=== PATIENT | male | born 1975 | race Caucasian/White ===

== ENCOUNTER 2021-06-02 18:22 | Inpatient (IN) | payer SELFPAY ==
--- NOTE | 2021-06-02 18:25 | Emergency Department Report ---
ED Chest Pain HPI - General Chief Complaint: Chest Pain Stated Complaint: STEMI Time Seen by Provider: 06/02/21 18:23 - History of Present Illness Initial Comments: Patient presents by EMS with chest pain. He has had chest pain for the last 1 to 2 hours. It is described as a substernal pain that radiates to the left side with heaviness. He has been nauseous. He has been vomiting. He has been diaphoretic. He is also been short of breath. Patient has known coronary disease. He states that he underwent cardiac catheterization about 1 year ago at [place]. He was told that he had some "blockages." No stent was placed. He was told that they were going to wait and see if medical management would alleviate his condition. He does also admit that he has not been compliant with his current medications. He admits to smoking marijuana but denies cigarette smoke. Pain is improved since EMS transported. They have administered morphine, nitro, and aspirin. They also administered Zofran. His pain went from a 10 out of 10 to a 1 out of 10 currently. There is no recent history of trauma. He has had no cough or congestion. He has had no fevers or chills. There is no known coronavirus exposure. Heart Score - HEART Score History: Highly suspicious EKG: Significant ST-depression Age: 45-65 Risk factors: > 3 risk factors or hx of atherosclerotic disease Troponin: < normal limit HEART Score: 7 - EKG Read Time Time EKG Completed: 18:00 EKG Read Time: 18:00 ED Review of Systems ROS: Stated complaint: STEMI Other details as noted in HPI Comment: All other systems reviewed and negative Constitutional: denies: fever Eyes: denies: vision change ENT: denies: throat pain Respiratory: denies: cough Cardiovascular: as per HPI Endocrine: denies: increased thirst, increased urine Gastrointestinal: denies: abdominal pain Genitourinary: denies: dysuria Musculoskeletal: denies: back pain Skin: denies: rash Neurological: denies: headache Hematological/Lymphatic: denies: easy bruising ED Past Medical Hx - Past Medical History Hx Hypertension: Yes - Family History Family history: hypertension ED Physical Exam - General Limitations: No Limitations General appearance: alert, anxious - Head Head exam: Present: atraumatic, normocephalic - Eye Eye exam: Present: normal appearance, PERRL, EOMI. Absent: conjunctival injection - ENT ENT exam: Present: normal exam, normal orophraynx - Neck Neck exam: Present: normal inspection. Absent: meningismus - Respiratory Respiratory exam: Present: normal lung sounds bilaterally. Absent: respiratory distress - Cardiovascular Cardiovascular Exam: Present: regular rate, normal rhythm - GI/Abdominal GI/Abdominal exam: Present: soft (Obese). Absent: tenderness - Back Exam Back exam: Absent: CVA tenderness (R), CVA tenderness (L) - Neurological Exam Neurological exam: Present: alert, oriented X3. Absent: motor sensory deficit - Psychiatric Psychiatric exam: Present: normal affect, normal mood - Skin Skin exam: Present: warm, dry ED Course - Reevaluation(s) Reevaluation #1: 06/02/21 18:28 Patient was seen upon arrival by EMS. Cardiology had already been faxed to the EKG. That was done at 1755 hrs. [facility] had been activated. Dr. Fitzpatrick was notified for the hospitalist. ED Medical Decision Making - EKG Data -: EKG Interpreted by Me EKG shows normal: sinus rhythm, axis, intervals Rate: normal - EKG Data When compared to previous EKG there are: changes noted Interpretation: acute IL - Medical Decision Making Patient presented with STEMI based on EKG. He does have risk factors for ACS. He was medically managed. He was taken emergently to the [facility] due to the abnormal EKG. Cardiology and the hospitalist service has been notified. Patient did not have a pulse deficit with suggest aortic dissection. Symptoms are nonpleuritic. No adventitious breath sounds. Believe that pneumonia is less likely. I believe that pneumothorax is less likely. He does not have coronavirus symptoms. Critical Care Time: Yes (Critical care time of 30 minutes exclusive of all procedures.) Critical care attestation.: If time is entered above; I have spent that time in minutes in the direct care of this critically ill patient, excluding procedure time. ED Disposition Clinical Impression: STEMI (ST elevation myocardial infarction) Disposition: ADMITTED INPATIENT Is pt being admited?: Yes Does the pt Need Aspirin: Yes Condition: Serious
--- NOTE | 2021-06-02 18:26 | History and Physical Report ---
History of Present Illness Chief complaint: My chest hurts History of present illness: 45 YO Male with Obesity, HTN, CAD, Nicotine Dependence presents to ED for evaluation. Patient reports "my chest hurts". Patient states that he experienced sudden onset chest pain over the past 2 hours. Patient states that pain is 7/10, constant, substernal, crushing in nature, associated with shortness of breath, worsened with exertion, relieved with rest, relieved with nitro. Patient acknowledges diaphoresis. EMS was notified and upon arrival the patient was found to be in distress and subsequently transported to [facility] for further care and evaluation of the aforementioned symptoms. The patient was seen and evaluated in the emergency department. All lab and imaging studies reviewed. Patient underwent EKG and found to have clinical symptoms consistent with unstable angina, ST elevation [place], as well as clinical symptoms consistent with diastolic congestive heart failure.. Cardiology team consulted and the patient was taken urgently to [facility]. Patient denies fever, chills, palpitation, productive cough, skin rash, recent ill contact, or known exposure to COVID-19. No prior admission for review. No medication listed at time of admission for reconciliation. Past History Past Medical History: CAD, hypertension Past Surgical History: No surgical history, Other (Reviewed) Social history: single, smoking Family history: diabetes, hypertension Medications and Allergies Allergies Allergy/AdvReac Type Severity Reaction Status Date / Time No Known Allergies Allergy Unverified 06/02/21 18:37 Review of Systems Constitutional: no weight loss, no weight gain, no fever, no chills Ears, nose, mouth and throat: no ear pain, no tinnitis, no nose pain, no nasal discharge Cardiovascular: chest pain, shortness of breath, decreased exercise tolerance Respiratory: no cough, no cough with sputum, no hemoptysis, no shortness of breath Gastrointestinal: no abdominal pain, no vomiting, no constipation, no change in bowel habits Genitourinary Male: no hematuria, no flank pain, no urinary frequency, no urinary hesitancy, no nocturia Rectal: no pain, no bleeding Musculoskeletal: no neck pain, no shooting arm pain, no low back pain, no shooting leg pain, no redness of joints Integumentary: no rash, no redness, no jaundice, no boils Neurological: no head injury, no paralysis, no parathesias, no tingling, no tremors Psychiatric: no anxiety, no sleep disturbances, no hypersomnia, no change in appetite Endocrine: no cold intolerance, no excessive thirst, no polydipsia, no polyuria, no excessive sweating Hematologic/Lymphatic: no easy bruising Allergic/Immunologic: no urticaria, no allergic rhinitis Exam - Constitutional General appearance: Present: mild distress, obese - EENT Eyes: Present: PERRL ENT: hearing intact, clear oral mucosa - Neck Neck: Present: supple, normal ROM - Respiratory Respiratory effort: normal Respiratory: bilateral: CTA - Cardiovascular Heart Sounds: Present: S1 & S2. Absent: rub, click - Extremities Extremities: pulses symmetrical, No edema Peripheral Pulses: within normal limits - Abdominal General gastrointestinal: Present: soft, non-tender, non-distended, normal bowel sounds Male genitourinary: Present: normal - Integumentary Integumentary: Present: clear, warm, dry - Musculoskeletal Musculoskeletal: gait normal, strength equal bilaterally - Psychiatric Psychiatric: appropriate mood/affect, intact judgment & insight - Neurologic Neurologic: CNII-XII intact, moves all extremities Results - Labs CBC & Chem 7: 06/02/21 19:35 06/02/21 19:35 Assessment and Plan - Patient Problems (1) STEMI (ST elevation myocardial infarction) Current Visit: No Status: Acute Plan to address problem: Cardiology team consulted. Patient taken urgently to [facility], patient admitted to ICU for further care. The high probability of a clinically significant, sudden or life threatening deterioration of the [cardiac, pulmonary] system(s) required my full and direct attention, intervention and personal management. The aggregate critical care time was [65] minutes. This time is in addition to time spent performing reported procedures but includes the following: [x] Data Review and interpretation [x] Patient assessment and monitoring of vital signs [x] Documentation [x] Medication orders and management (2) Diastolic CHF Current Visit: Yes Status: Acute Qualifiers: Heart failure chronicity: acute Qualified Code(s): I50.31 - Acute diastolic (congestive) heart failure Plan to address problem: Strict I/O, monitor urine output every shift, blood pressure control, cardiology team consulted. (3) Nicotine dependence Current Visit: Yes Status: Acute Qualifiers: Nicotine product type: cigarettes Substance use status: in withdrawal Qualified Code(s): F17.213 - Nicotine dependence, cigarettes, with withdrawal Plan to address problem: Smoking cessation counseling, supportive care. (4) Obesity hypoventilation syndrome Current Visit: Yes Status: Acute Plan to address problem: Balanced diet, increase physical activity at discharge, outpatient pulmonary follow-up for sleep study. (5) DVT prophylaxis Current Visit: Yes Status: Acute Plan to address problem: SCD to bilateral lower extremities while in bed
[2021-06-02] MEDS ORDERED: MIDAZOLAM 2 MG/2 ML INJ ONE (18:29)
[2021-06-02] MEDS ORDERED: HEPARIN/NS 5000 UNIT/500ML 1,000 ML IR ONE (18:29)
[2021-06-02] MEDS ORDERED: HEPARIN 10,000 UNITS/10 ML VIAL ONE (18:29)
[2021-06-02] MEDS ORDERED: NITROGLYCERIN SYRINGE 0 ML ONE (18:30)
[2021-06-02] MEDS ORDERED: VERAPAMIL 5 MG/2 ML INJ ONE (18:30)
[2021-06-02] MEDS ORDERED: SODIUM CHLORIDE 0.9% 1000 ML 1,000 ML ONE (18:30)
[2021-06-02] MEDS ORDERED: fentaNYL 100 MCG/2 ML INJ ONE (18:30)
[2021-06-02] MEDS ORDERED: HYDROmorphone 1 MG/1 ML INJ IV PRN (18:40)
[2021-06-02] MEDS ORDERED: ACETAMINOPHEN 325 MG TAB PO PRN ×2 (18:40→20:53)
[2021-06-02] MEDS ORDERED: oxyCODONE /ACETAMINOPHEN 5-325MG TAB PO PRN (18:40)
[2021-06-02] MEDS: LIDOCAINE (2%) 20 MG/1 ML VIAL 20 ML MDV INFILTRATI ONE ×2 (18:43→19:10)
[2021-06-02] MEDS ORDERED: ATROPINE 0.1% (1 MG/10 ML) CARDIAC SYRINGE ONE (18:48)
[2021-06-02] MEDS: HEPARIN 10,000 UNITS/10 ML VIAL ONE ×3 (18:50→20:25)
[2021-06-02] MEDS ORDERED: HEPARIN/NS 5000 UNIT/500ML 500 ML IR ONE (18:53)
[2021-06-02] MEDS ORDERED: NITROGLYCERIN DRIP 50 MG/250 ML BOTTLE ONE (19:40)
[2021-06-02 19:50] LABS: Hemoglobin 14.8 gm/dl (11.8-15.2); Mean Corpuscular HGB Conc 34 % (32-34); Mean Corpuscular Volume 90 fl (84-94); Platelet Count 250 K/mm3 (140-440); Red Blood Count 4.79 M/mm3 (3.65-5.03); Red Cell Distribution Width 14.3 % (13.2-15.2)
[2021-06-02 20:03] LABS: Calcium 8.4 mg/dL (8.4-10.2)
[2021-06-02] MEDS ORDERED: TICAGRELOR 90 MG TAB ONE (20:25)
[2021-06-02] MEDS ORDERED: ALUM-MAG HYDROXIDE-SIMETHICONE 200-200-20MG/5ML ORAL LIQD 30 ML ONE (20:26)
[2021-06-02 20:32] LABS: INR 1.13 (0.87-1.13)
[2021-06-02] MEDS ORDERED: HEPARIN/ 0.45% NACL DRIP 25,000 UNIT/500 ML BAG ONE (20:33)
[2021-06-02] MEDS ORDERED: SENNOSIDES 8.6 MG TAB PO PRN (20:53)
[2021-06-02] MEDS ORDERED: ZOLPIDEM 5 MG TAB PO PRN (20:53)
[2021-06-02] MEDS ORDERED: ONDANSETRON 4 MG/2 ML INJ IV PRN (20:53)
[2021-06-02] MEDS ORDERED: SODIUM CHLORIDE 0.9% 100 ML IVPB IV SCH (21:00)
[2021-06-02] MEDS ORDERED: HEPARIN/ 0.45% NACL DRIP 25,000 UNIT/500 ML BAG IV SCH (21:00)
[2021-06-02 21:18] LABS: Partial Thromboplastin Time > 240.0 Sec. (24.2-36.6)
[2021-06-02] MEDS ORDERED: SODIUM CHLORIDE 0.9% 1000 ML 1,000 ML IV SCH (22:15)
[2021-06-02] MEDS: TICAGRELOR 90 MG TAB PO SCH (22:53)
[2021-06-02] MEDS: METOPROLOL TARTRATE 50 MG TAB PO SCH (23:01)
--- NOTE | 2021-06-03 01:30 | Cardiac Catherization Report ---
DATE OF SERVICE: 06/02/2021 CARDIAC CATHETERIZATION AND CORONARY INTERVENTION REPORT INDICATIONS: A 45-year-old -Japanese gentleman with history of hypertension and obesity, known coronary artery disease, continued on medical therapy. He did not have any followup in the last couple of years, he apparently had catheterization done at [facility] and he was advised medical therapy according to the patient. Since that time, he did not have any cardiac followup. Two hours prior to admission, he started having anterior chest pain, sweating and short of breath, hence paramedics were called and EKG showed ST elevations in the inferior leads and was brought to the Emergency Room and a STEMI protocol was followed and brought to the catheterization laboratory on an emergency basis with continued severe chest pain and blood pressure being elevated. The patient was explained the diagnosis and emergency catheterization was recommended and he agreed for the same. DESCRIPTION OF PROCEDURE: The patient was brought to the catheterization laboratory. Received morphine sulfate in the Emergency Room and he still continues to have chest pain and evaluated for moderate sedation and received IV Versed and fentanyl. Subsequently, initially both the radial access site and femoral artery access sites were prepared and local anesthesia was given in the right wrist area and a right radial artery access was obtained without difficulty. The patient received 5 mg of intra-arterial verapamil and 3000 units of intravenous heparin. Subsequently, a JR4 6-Macedonian guiding catheter was advanced and engaged the right coronary artery, which showed occlusion of the proximal RCA. However, the guiding support was poor. Guidewire was advanced into the distal RCA and balloon angioplasty was attempted using the radial artery. The balloon was dilated at one time, however, subsequently because of poor guide support and difficult manipulation to keep the guiding catheter engaged in spite of trying different guiding catheters including JR4 and AR1 and modified right catheter. Because of difficulty with the support, access was changed to right femoral area. Local anesthesia was given in the right femoral area. Under fluoroscopic guidance, right femoral artery access was obtained without difficulty with a 5-Macedonian micropuncture needle. A 6-Macedonian sheath was introduced. A 6-Macedonian JR4 was used to engage the right coronary artery with decent guide support. A 0.014-inch Torreon XT guidewire was advanced into distal RCA. Subsequently, lesion was dilated with a 2.75 x 15 mm few times and there is evidence of QUINTIN-3 flow into the distal RCA. As noted above, RCA is 100% occluded proximally initially with a QUINTIN-0 flow. However, there is large amount of thrombus noted. Attempt was made to advance a 6-Macedonian [place] catheter; however, could not advance the thrombectomy catheter. Subsequently, lesion was dilated few times with 3.0 x 20 mm Euphora balloon with resolution of the thrombus and lesion was reduced to 40-50%. However, distal RCA showed diffuse ectasia along with a few focal 80-90% lesions. QUINTIN-3 flow was still noted. A 4.0 x 26 mm Resolute Bhupinder stent was inserted in proximal RCA with inflation up to 14 atmospheres with very good result. Proximal lesion was reduced from initially 100% to 0%. After insertion of the stent, distal lesions were dilated with a 2.5 x 20 mm balloon and 2.75 x 15 mm balloon. However, it is very difficult to advance the balloons to distal area because of not very good guide support. It is to be noted mid and distal RCA is diffusely diseased. Considering the diffuse nature of the vessel and QUINTIN-3 flow and resolution of the patient's chest pain, it was felt that the patient can be continued on medical therapy. No complications of perforation or dissection were noted. No distal embolization noted. However, the patient developed a significant reperfusion arrhythmia and hypotension after opening the RCA, which improved with time. After obtaining the angiograms of the right coronary artery and intervening the right coronary lesion when satisfactory result was obtained, left coronary angiograms were obtained using JL 4.0 diagnostic catheter. This showed left main to be without significant disease; however, LAD showed a long 70% lesion proximally with a severe 80-90% very distal lesion. Diagonal branch without significant disease. However, the circumflex artery showed 60-70% proximal lesion and also occluded obtuse marginal branch noted proximally. Circumflex artery also showed severe long distal lesion approaching 90%, which is supplying the posterior obtuse marginal branch. Ramus branch without significant disease. Collaterals none. Left ventriculogram was performed using a multipurpose catheter in LOONEY and MARISSA projection. This showed normal sized left ventricle with normal contractility with no significant wall motion abnormalities and end-diastolic pressure was 22 mmHg. Significant mitral regurgitation could not be evaluated because of limited amount of dye. It is to be noted the patient is significantly obese, and very uncomfortable during the procedure. However, at the end of the procedure, he is completely pain free in the recovery area, is very comfortable. The patient was started on IV nitroglycerin during the procedure for control of blood pressure. The patient had transient bradycardia and hypotension, probably secondary to reperfusion injury; however, it resolved without any intervention. In the recovery area, the patient is comfortable, no hematoma in the right groin. It is to be noted right radial access was managed with radial band with good closure. Right femoral artery access was managed with application of Angio-Seal closure device after obtaining angiograms and showing satisfactory angiograms per closure device. Post closure, no hematoma noted in the right groin. Post-procedure ACT was found to be around 240 milliseconds, received extra dose of 3000 units of heparin. The patient received 180 mg of Brilinta after the procedure in the catheterization laboratory. The patient's moderate sedation started at 1842 hours and ended at 2013 hours. 1. Left ventriculogram done in LOONEY projection showed normal sized left ventricle with normal contractility. End-diastolic pressure is 22 mmHg. Mitral regurgitation was not evaluated. 2. Left coronary system shows left main without significant disease, as mentioned above proximal LAD shows long 70% proximal lesion in addition to 80-90% very distal lesion. Proximal diagonal branch without significant disease. Ramus branch is also medium sized without significant disease. Circumflex artery, however, showed 70% proximal lesion and medium sized occluded obtuse marginal branch proximally at the ostium with late filling of the distal vessel. Also, a long severe lesion involving the distal part of the circumflex artery is supplying moderate sized distal obtuse marginal branch. 3. RCA is the culprit lesion with 100% with amanda thrombotic lesion. Balloon angioplasty followed by stent placement resulted in QUINTIN-3 flow. Proximal lesion was reduced from 100% to 0%. However, distally, the patient has diffuse mid and distal disease. The distal lesions which were focal 80-90% was dilated with the balloon, but no stent was inserted. This is because of diffuse disease and ectasia noted. At this time, the patient is hemodynamically stable. FINAL IMPRESSION: Uncomplicated drug-eluting stent placement to the proximal RCA. QUINTIN-0 flow was converted to QUINTIN-3 with no complications of dissection or perforation. It is to be noted the patient has diffuse mid and distal RCA disease, underwent balloon angioplasty of the distal RCA of severe focal lesions with a good result. Left coronary system shows severe disease including the proximal LAD, distal LAD in addition to 100% occluded OM1 and proximal circumflex and distal circumflex lesions with bypassable marginal branches and LAD. Considering the above angiographic pictures, may consider revascularization surgically versus percutaneously. However, we will manage him aggressive medical therapy considering the patient is not very compliant with his medical followup. The patient will be admitted to coronary care unit. He will be monitored for next 48 hours. He will receive IV heparin for 24 hours and will be hydrated and BMP will be monitored. We will discontinue IV nitroglycerin once his blood pressure stabilizes. Findings were explained to the patient. He understands. TID: [id number] RECEIPT: [id number] MIKE/RADHA/KIKE BLANCO
--- NOTE | 2021-06-03 02:26 | Consultation ---
DATE OF CONSULTATION: 06/02/2021 CARDIOLOGY CONSULTATION DATE OF CONSULTATION: 06/02/2021 HISTORY OF PRESENT ILLNESS: The patient is a 45-year-old gentleman with history of hypertension, obesity, was hospitalized at [facility], according to him 2-3 years ago and underwent cardiac catheterization and was advised medical therapy. Since that time, he did not take any of his medications including antihypertensive medication. Apparently, he did not see any physician. The patient started having anterior chest pain 2 hours prior to presentation while he was watching TV. Paramedics were called and EKG showed significant ST elevations in the inferior leads consistent with acute inferior injury, hence brought to the emergency room on emergency basis and STEMI protocol was followed, and was taken to the catheterization laboratory immediately. Catheterization showed a 100% occluded dominant RCA with large amount of thrombus. A radial access and groin access were used and balloon angioplasty and stenting were performed with a conversion of the QUINTIN 0 flow to QUINTIN 3 flow. The patient's chest pain improved. Further evaluation showed significant triple vessel disease. However, considering diffuse disease, and the patient is chest pain free, this will be managed medically for now and may consider bypass surgery versus intervention at a later date. The patient has a history of hypertension, on no medications, no history of diabetes mellitus or pulmonary problems. Known coronary artery disease, apparently was advised medical therapy at [facility] 2 years ago. SOCIAL HISTORY: Does not smoke, but uses marijuana regularly 3-4 times a day. No history of cocaine use. No history of diabetes mellitus. Does not drink alcohol. 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 ALLERGIES: Not known at this time. MEDICATIONS AT HOME: Unknown. REVIEW OF SYSTEMS: He was doing well up to this evening. Denied any previous history of chest pains with his usual activities. As mentioned above, on no medications. No history of gastric ulcers or anemia. No history of strokes or seizures. No leg swelling. No orthopnea or PND. PHYSICAL EXAMINATION: VITAL SIGNS: Blood pressure was 160/110, pulse 100 per minute, afebrile. HEENT: Conjunctivae pink.: Sclerae are anicteric. NECK: Supple. Difficulty to evaluate JVD. HEART: Regular. No significant murmurs. LUNGS: Clear. ABDOMEN: Obese. EXTREMITIES: Without edema. NEUROLOGIC: Alert, oriented x3. FINAL IMPRESSION: 1. Acute inferior wall myocardial infarction of couple of hours' duration with significant ST elevations in the inferior leads and underwent emergency intervention as per STEMI protocol with resolution of his chest pain and jain of QUINTIN 3 flow. The patient does have diffuse distal disease of the right coronary artery in addition to significant disease in the left coronary system. However, left ventricular function is normal. 2. Essential hypertension. 3. Marijuana use. 4. History of skin grafts for waldron in the past. 5. Obesity. 6. Hypertension. PLAN: At this time is monitor him in the CCU. Continue IV nitroglycerin for now and continue IV heparin for 24 hours. The patient will be on aspirin 325 mg in addition to Brilinta 90 mg b.i.d. The patient received Brilinta 180 mg in the catheterization laboratory. The patient also will be started on metoprolol 50 mg b.i.d. in addition to losartan and also will be given atorvastatin 80 mg a day. The patient, at this time, has significant diffuse disease in all the vessels with normal LV function. We will maximize medical therapy and consider revascularization either surgically or with intervention. No hematoma noted in the right groin and right radial access site is unremarkable. The patient will be monitored closely for the next 48-72 hours. Findings were explained to the patient. TID: [id number] RECEIPT: [id number] MIKE/MARGARITA BLANCO
[2021-06-03 03:44] LABS: Basophils # (Auto) 0.1 K/mm3 (0.0-0.1); Basophils % (Auto) 0.5 % (0.0-1.8); Eosinophils % (Auto) 0.1 % (0.0-4.3); Hematocrit 41.1 % (35.5-45.6); Hemoglobin 14.1 gm/dl (11.8-15.2); Lymphocytes # (Auto) 2.3 K/mm3 (1.2-5.4); Lymphocytes % (Auto) 15.5 % (13.4-35.0); Mean Corpuscular HGB Conc 34 % (32-34); Mean Corpuscular Volume 88 fl (84-94); Monocytes # (Auto) 0.6 K/mm3 (0.0-0.8); Platelet Count 270 K/mm3 (140-440); Red Blood Count 4.66 M/mm3 (3.65-5.03); Red Cell Distribution Width 14.2 % (13.2-15.2)
--- NOTE | 2021-06-03 04:54 | XRay Report ---
CHEST 1 VIEW INDICATION: post pci. COMPARISON: None. FINDINGS: Support devices: None. Heart: Normal. Lungs/Pleura: There are low lung volumes. Atelectatic changes are noted in the right lung base. No pl eural abnormality. IMPRESSION: 1. Low lung volumes with atelectatic change in the right lung base. Signer Name: Issac Calloway MD Signed: 06/03/2021 4:50 AM Workstation Name: [id number]
[2021-06-03 05:01] LABS: BUN/Creatinine Ratio 13; Blood Urea Nitrogen 15 mg/dL (9-20); Hemolysis Index 13
[2021-06-03 05:49] LABS: Chol/HDL Ratio 5.33 %; HDL Cholesterol 33 mg/dL (40-59); LDL Cholesterol,Direct 126 mg/dL (50-130)
[2021-06-03] MEDS ORDERED: EPINEPHrine 1 MG/10 ML SYRINGE ONE (06:15)
[2021-06-03] MEDS ORDERED: ATROPINE 0.1% (1 MG/10 ML) CARDIAC SYRINGE ONE (06:15)
[2021-06-03] MEDS: HYDROcodone/ACETAMINOPHEN 5-325 MG TAB PO PRN ×2 (08:12→16:43)
[2021-06-03] MEDS: METOPROLOL TARTRATE 50 MG TAB PO SCH (09:07)
[2021-06-03] MEDS: TICAGRELOR 90 MG TAB PO SCH (09:15)
[2021-06-03] MEDS: HYDROmorphone 1 MG/1 ML INJ IV PRN ×2 (09:21→17:26)
--- NOTE | 2021-06-03 09:52 | Progress Note ---
History Interval history: Acute coronary syndrome/NSTEMI. Acute diastolic heart failure Tobacco abuse Obesity hypoventilation syndrome Medical noncompliance. 06/03/2021. Patient has diffuse mid and distal RCA disease and is s/p balloon angioplasty with drug eluting stent placement to the proximal RCA. Left coronary system shows severe disease including the proximal LAD, distal LAD with 100% occluded OM1 and proximal circumflex and distal circumflex lesions with bypassable marginal branches and LAD. Cardiology reports that considering the above angiography, patient will need revascularization surgically versus percutaneously. Patient with elevated troponin of 7.4. Continue heparin drip, Brilinta, aspirin and Lipitor. Continue Cozaar 25 mg daily and metoprolol 50 mg twice daily. Cardiology following. Hospitalist Physical - Constitutional Vitals: Temp Pulse Resp BP Pulse Ox 99.3 F 93 H 20 179/84 20 L 06/03/21 07:00 06/03/21 08:45 06/03/21 08:45 06/03/21 08:45 06/03/21 08:00 General appearance: Present: mild distress, obese HEART Score - HEART Score EKG: Significant ST-depression Age: 45-65 Risk factors: > 3 risk factors or hx of atherosclerotic disease Troponin: Troponin T 7.410 ng/mL (0.00-0.029) H* D 06/03/21 03:26 Troponin: < normal limit Results - Labs CBC & Chem 7: 06/03/21 03:27 06/03/21 03:26 Labs: Laboratory Last Values WBC 14.6 K/mm3 (4.5-11.0) H 06/03/21 03:27 RBC 4.66 M/mm3 (3.65-5.03) 06/03/21 03:27 Hgb 14.1 gm/dl (11.8-15.2) 06/03/21 03:27 Hct 41.1 % (35.5-45.6) 06/03/21 03:27 MCV 88 fl (84-94) 06/03/21 03:27 MCH 30 pg (28-32) 06/03/21 03:27 MCHC 34 % (32-34) 06/03/21 03:27 RDW 14.2 % (13.2-15.2) 06/03/21 03:27 Plt Count 270 K/mm3 (140-440) 06/03/21 03:27 Lymph % (Auto) 15.5 % (13.4-35.0) 06/03/21 03:27 Weber % (Auto) 4.0 % (0.0-7.3) 06/03/21 03:27 Eos % (Auto) 0.1 % (0.0-4.3) 06/03/21 03:27 Baso % (Auto) 0.5 % (0.0-1.8) 06/03/21 03:27 Lymph # (Auto) 2.3 K/mm3 (1.2-5.4) 06/03/21 03:27 Weber # (Auto) 0.6 K/mm3 (0.0-0.8) 06/03/21 03:27 Eos # (Auto) 0.0 K/mm3 (0.0-0.4) 06/03/21 03:27 Baso # (Auto) 0.1 K/mm3 (0.0-0.1) 06/03/21 03:27 Seg Neutrophils % 79.9 % (40.0-70.0) H 06/03/21 03:27 Seg Neutrophils # 11.7 K/mm3 (1.8-7.7) H 06/03/21 03:27 PT 15.0 Sec. (12.2-14.9) H 06/02/21 19:35 INR 1.13 (0.87-1.13) 06/02/21 19:35 APTT > 240.0 Sec. (24.2-36.6) H* 06/02/21 19:35 Heparin Anti-Xa Level 0.89 U.I./ml (0.3-0.7) H 06/03/21 03:26 Sodium 139 mmol/L (137-145) 06/03/21 03:26 Potassium 4.5 mmol/L (3.6-5.0) D 06/03/21 03:26 Chloride 102.5 mmol/L (98-107) 06/03/21 03:26 Carbon Dioxide 24 mmol/L (22-30) 06/03/21 03:26 Anion Gap 17 mmol/L 06/03/21 03:26 BUN 15 mg/dL (9-20) 06/03/21 03:26 Creatinine 1.2 mg/dL (0.8-1.3) 06/03/21 03:26 Estimated GFR > 60 ml/min 06/03/21 03:26 BUN/Creatinine Ratio 13 % 06/03/21 03:26 Glucose 125 mg/dL (75-100) H 06/03/21 03:26 Calcium 9.0 mg/dL (8.4-10.2) 06/03/21 03:26 Troponin T 7.410 ng/mL (0.00-0.029) H* D 06/03/21 03:26 Triglycerides 213 mg/dL (2-149) H 06/03/21 03:26 Cholesterol 176 mg/dL (50-199) 06/03/21 03:26 LDL Cholesterol Direct 126 mg/dL (50-130) 06/03/21 03:26 HDL Cholesterol 33 mg/dL (40-59) L 06/03/21 03:26 Cholesterol/HDL Ratio 5.33 % 06/03/21 03:26 Active Medications - Current Medications Current Medications: Generic Name Dose Route Start Last Admin Trade Name Freq PRN Reason Stop Dose Admin Acetaminophen 650 mg 06/02/21 18:40 Acetaminophen 325 Mg Tab PO Q6H PRN Pain MILD(1-3)/Fever >100.5/GARRIDO Hydrocodone Bitart/Acetaminophen 1 each 06/02/21 20:53 06/03/21 08:12 Hydrocodone/Acetaminophen 5-325 Mg Tab PO 1 each Q6H PRN Administration Pain, Moderate (4-6) Aspirin 325 mg 06/03/21 10:00 06/03/21 09:06 Aspirin Ec 325 Mg Tab PO 325 mg QDAY KARL Administration Atorvastatin Calcium 80 mg 06/02/21 22:00 06/02/21 23:01 Atorvastatin 40 Mg Tab PO 80 mg QHS KARL Administration Hydromorphone HCl 0.5 mg 06/02/21 20:53 06/03/21 09:21 Hydromorphone 1 Mg/1 Ml Inj IV 0.5 mg Q3H PRN Administration Pain , Severe (7-10) Heparin Sodium/Sodium Chloride 25,000 unit in 500 mls @ 20 mls/hr 06/02/21 21:00 06/03/21 04:49 Heparin/ 0.45% Nacl-25,000 Unit/500 Ml IV 900 units/hr TITRATE KARL 18 mls/hr Titration Protocol 1,000 UNITS/HR Losartan Potassium 25 mg 06/03/21 10:00 06/03/21 09:06 Losartan 25 Mg Tab PO 25 mg QDAY KARL Administration Metoprolol Tartrate 50 mg 06/02/21 22:00 06/03/21 09:07 Metoprolol Tartrate 50 Mg Tab PO 50 mg BID KARL Administration Ondansetron HCl 4 mg 06/02/21 20:53 Ondansetron 4 Mg/2 Ml Inj IV Q8H PRN N/V unrelieved by Ever Oxycodone/Acetaminophen 1 tab 06/02/21 18:40 Oxycodone /Acetaminophen 5-325mg Tab PO Q12H PRN Pain, Moderate (4-6) Senna 8.6 mg 06/02/21 20:53 Sennosides 8.6 Mg Tab PO Q12H PRN Laxative Effect Sodium Chloride 10 ml 06/02/21 22:00 06/03/21 09:13 Sodium Chloride 0.9% 10 Ml Flush Syringe IV 10 ml BID KARL Administration Sodium Chloride 10 ml 06/02/21 18:40 Sodium Chloride 0.9% 10 Ml Flush Syringe IV PRN PRN LINE FLUSH Ticagrelor 90 mg 06/02/21 22:00 06/03/21 09:15 Ticagrelor 90 Mg Tab PO 90 mg BID KARL Administration Zolpidem Tartrate 5 mg 06/02/21 20:53 Zolpidem 5 Mg Tab PO QHS PRN Sleep
[2021-06-03] MEDS ORDERED: LOSARTAN 25 MG TAB PO SCH ×2 (10:00→18:39)
[2021-06-03] MEDS ORDERED: ASPIRIN EC 325 MG TAB PO SCH (10:00)
[2021-06-03] MEDS ORDERED: METOPROLOL TARTRATE 50 MG TAB PO SCH (15:30)
[2021-06-03] MEDS ORDERED: HEPARIN 10,000 UNITS/10 ML VIAL IV ONE (16:00)
--- NOTE | 2021-06-03 17:37 | Progress Note ---
<MAURICIO LAST - Last Filed: 06/03/21 17:53> Assessment and Plan Continue IV heparin gtt x 24 hrs. Continue DAPT (bASA & Brilinta) and high-intensity statin. Increase PO Lopressor to 50mg TID for now. May further increase as BP permits. Will also increase Losartan to 50mg daily. Otherwise stable for transfer to tele floor. Lifestyle modifications, including dietary changes, exercise/weight loss, and adherence to medical regimen, discussed at length with pt at bedside. All questions answered. Pt verbalized understanding. Pt will likely require surgical vs percutaneous revascularization in the future. Continue aggressive medical mgmt for now. Plan also for outpatient sleep eval. Pt seen in conjunction with Dr. Odonnell, who agrees with the assessment and plan of care. - Patient Problems (1) Acute inferior myocardial infarction Status: Acute (2) Stented coronary artery Status: Acute (3) CAD (coronary artery disease) Status: Chronic (4) Accelerated hypertension Status: Acute (5) Obesity Status: Chronic (6) ERNIE (obstructive sleep apnea) Status: Suspected (7) Medical non-compliance Status: Chronic Subjective Date of service: 06/03/21 Principal diagnosis: STEMI Interval history: Denies chest pain or any additional cardiac complaints. Occasional tenderness at R groin site. Tele reviewed - SR 90s, no events. Objective Last Vital Signs Temp 99.4 F 06/03/21 16:00 Pulse 89 06/03/21 15:30 Resp 25 H 06/03/21 15:30 BP 129/96 06/03/21 15:30 Pulse Ox 99 06/03/21 15:15 - Physical Examination General: No Apparent Distress HEENT: Positive: EOMI, Normocephaly Neck: Positive: neck supple, trachea midline. Negative: JVD/HJR Cardiac: Positive: Reg Rate and Rhythm, S1/S2 Lungs: Positive: clear to auscultation Neuro: Positive: Grossly Intact Abdomen: Positive: Soft. Negative: Tender Skin: Negative: Rash Incision: Cardiac Cath Site (R radial & groin - clean/dry/intact, no evidence of bleeding or hematoma) Musculoskeletal: No Pain Extremities: Present: lower extr. pulses. Absent: edema - Labs and Meds Coagulation 06/02/21 Range/Units 19:35 PT 15.0 H (12.2-14.9) Sec. INR 1.13 (0.87-1.13) APTT > 240.0 H* (24.2-36.6) Sec. Lipids 06/03/21 Range/Units 03:26 Triglycerides 213 H (2-149) mg/dL Cholesterol 176 (50-199) mg/dL HDL Cholesterol 33 L (40-59) mg/dL Cholesterol/HDL Ratio 5.33 % CBC 06/02/21 06/03/21 Range/Units 19:35 03:27 WBC 14.5 H 14.6 H (4.5-11.0) K/mm3 RBC 4.79 4.66 (3.65-5.03) M/mm3 Hgb 14.8 14.1 (11.8-15.2) gm/dl Hct 43.0 41.1 (35.5-45.6) % Plt Count 250 270 (140-440) K/mm3 Lymph # (Auto) 2.3 (1.2-5.4) K/mm3 [place] # (Auto) 0.6 (0.0-0.8) K/mm3 Eos # (Auto) 0.0 (0.0-0.4) K/mm3 Baso # (Auto) 0.1 (0.0-0.1) K/mm3 Comprehensive Metabolic Panel 06/02/21 06/03/21 Range/Units 19:35 03:26 Sodium 138 139 (137-145) mmol/L Potassium 3.7 4.5 D (3.6-5.0) mmol/L Chloride 101.6 102.5 (98-107) mmol/L Carbon Dioxide 23 24 (22-30) mmol/L BUN 17 15 (9-20) mg/dL Creatinine 1.3 1.2 (0.8-1.3) mg/dL Glucose 140 H 125 H (75-100) mg/dL Calcium 8.4 9.0 (8.4-10.2) mg/dL - Imaging and Cardiology EKG: report reviewed, image reviewed Echo: report reviewed (06/02/2021 - EF 50-55%, mild LVH, mild hypokinesis in the basal inferior wall & septum, mild hypokinesis in the basal septal wall, trace TR, RVSP 20mmHg) Cardiac cath: report reviewed - Telemetry EKG Rhythm: Sinus Rhythm - EKG Sinus rhythms and dysrhythmias: sinus rhythm Myocardial infarction: inferior MO (acute or rec <CECILIA ODONNELL R - Last Filed: 06/04/21 16:31> Assessment and Plan Reviewed documentation and discussed at length with Mauricio about management plans,cardiac status is stable,monitor in telemetry. Objective Vital Signs Pulse Resp BP Pulse Ox 06/03/21 18:45 51 L 20 133/106 06/03/21 18:43 0 L 06/03/21 18:31 60 23 70/53 06/03/21 18:15 51 L 11 L 100/56 81 L 06/03/21 18:09 90 26 H 100/56 06/03/21 17:45 117 H 31 H 100/56 100 06/03/21 17:31 121 H 25 H 100/56 06/03/21 17:15 38 H 100/56 99 06/03/21 17:01 125 H 30 H 174/110 95 06/03/21 16:45 104 H 21 174/110 100 06/03/21 16:31 101 H 16 174/110 99
[2021-06-03] MEDS ORDERED: POLYETHYLENE GLYCOL 3350 17 GM POWDER PO ONE (18:00)
--- NOTE | 2021-06-03 18:24 | Cat Scan Report ---
CT ABDOMEN AND PELVIS WITHOUT CONTRAST INDICATION / CLINICAL INFORMATION: Generalized abdominal pain. Patient reports having a procedure yesterday involving the groin, side un specified. TECHNIQUE: Axial CT images were obtained through the abdomen and pelvis without IV contrast. All CT scans at [facility] location are performed using CT dose reduction for ALARA by means of automated exposure control. COMPARISON: None available. FINDINGS: LOWER CHEST: No significant abnormality. LIVER: There is generalized steatosis without other significant abnormalities. GALLBLADDER: Vicarious excretion of contrast is noted without other significant abnormalities. BILE DUCTS: No significant abnormality. PANCREAS: No significant abnormality. SPLEEN: No significant abnormality. ADRENALS: No significant abnormality. RIGHT KIDNEY / URETER: No significant abnormality. LEFT KIDNEY / URETER: No significant abnormality. STOMACH / SMALL BOWEL: No significant abnormality. COLON: No significant abnormality. APPENDIX: No significant abnormality. PERITONEUM: No free fluid. No free air. A large hematoma is seen anteriorly along the pelvis measurin g 16.3 x 5.3 cm on image 183 of series 2. Hematoma is seen extending along the right psoas muscle fro m just below the kidneys to the right groin. LYMPH NODES: No significant adenopathy. AORTA / ARTERIES: No significant abnormality. IVC / VEINS: No significant abnormality. URINARY BLADDER: Collapsed and not well evaluated. REPRODUCTIVE ORGANS: No significant abnormality. ADDITIONAL FINDINGS: Fat stranding is seen along the right groin, likely related to the patient's rep orted recent procedure. No organized hematoma is seen within the right inguinal subcutaneous tissues. SKELETAL SYSTEM: No significant abnormality. IMPRESSION: 1. Extensive hematoma involving the abdomen and pelvis as above without other acute findings. 2. Changes along the right groin are compatible with recent percutaneous access of the right common f emoral artery or vein. Please correlate with clinical findings. Signer Name: Shabbir Fierro MD Signed: 06/03/2021 6:20 PM Workstation Name: [id number]
[2021-06-03] MEDS ORDERED: NORepinephrine/NS 4 MG-250 ML 4 MG/250 ML BAG IV ONE (18:29)
--- NOTE | 2021-06-03 18:42 | Procedure Note ---
Pre-op diagnosis: Cardiac arrest, cardiogenic shock Post-op diagnosis: same Procedure: Right internal jugular vein triple-lumen catheter under ultrasound guidance. The patient was prepped and draped in the usual sterile fashion. A timeout was taken to identify correct patient, correct procedure, correct operative site. Ultrasound was utilized to localize the right internal jugular vein without difficulty. Local anesthesia was obtained with 2% lidocaine. The Seldinger technique was utilized to access the right internal jugular vein. A seeker needle was utilized to access the right internal jugular vein under ultrasound guidance. A guidewire was then advanced into the right internal jugular vein a nd the seeker needle removed over the guidewire. A scalpel was used to incise the skin at the insertion site. A dilator was then passed over the guidewire and subsequently removed. A preflushed triple-lumen catheter was advanced to the right internal jugular vein without difficulty. All 3 ports flush and draw with ease. Estimated blood loss minimal. Complications none. Surgeon: KIARA MCFARLAND Estimated blood loss: minimal Condition: critical Disposition: ICU
--- NOTE | 2021-06-03 18:42 | Event Note ---
Date: 06/03/21 A CODE GWEN was called. I presented to the bedside and the patient was found in asystolic arrest. The patient was treated" with ACLS protocol with return of perfusing cardiac rhythm. 90 minutes critical care time dedicated to patient care.
--- NOTE | 2021-06-03 19:00 | Event Note ---
Date: 06/03/21 A CODE GWEN was called. I presented to bring the bedside. The patient was found in asystolic arrest. The patient was treated" with ACLS protocol. On physical exam the patient was found to have absent pupillary responses. Patient pupils are fixed and dilated. Patient was found to have absent lung sounds. Patient was found to have absent heart sounds. Asystole observed on the monitor car operator. Patient pronounced at 1851 hrs.
--- NOTE | 2021-06-03 19:01 | Death Note ---
Note Date of : 06/03/21 Time of : 18:51 Time Pronounced: 18:51 - Preliminary Cause of (problem) (1) STEMI (ST elevation myocardial infarction) Preliminary cause of (2) Diastolic CHF Qualifiers: Heart failure chronicity: acute Qualified Code(s): I50.31 - Acute diastolic (congestive) heart failure Preliminary cause of (3) Nicotine dependence Qualifiers: Nicotine product type: cigarettes Substance use status: in withdrawal Qualified Code(s): F17.213 - Nicotine dependence, cigarettes, with withdrawal Preliminary cause of (4) Obesity hypoventilation syndrome Preliminary cause of (5) DVT prophylaxis Preliminary cause of (6) Cardiac arrest Preliminary cause of (7) Cardiogenic shock Preliminary cause of
--- NOTE | 2021-06-03 19:04 | XRay Report ---
CHEST 1 VIEW 06/03/2021 6:43 PM INDICATION / CLINICAL INFORMATION: central line placement/ETT. COMPARISON: None available. FINDINGS: SUPPORT DEVICES: Endotracheal tube is in good position at the level of clavicles. Right IJ central li ne terminates over the mid SVC. HEART / MEDIASTINUM: No significant abnormality. LUNGS / PLEURA: No significant pulmonary or pleural abnormality. Gaseous distention of the stomach. ADDITIONAL FINDINGS: No significant additional findings. IMPRESSION: 1. Endotracheal tube and central line are in good position. Signer Name: Russel Bolanos MD Signed: 06/03/2021 7:00 PM Workstation Name: [id number]
[2021-06-03 19:19] VITALS: BP 133/106
--- NOTE | 2021-06-05 11:04 | Death Summary ---
Summary - Providers Date of service: 06/03/21 Consults: 06/02/21 Consult to Cardiac Rehabilitation [CONS] Routine Reason For Exam: post pci Attending: JOSIAS LAST - summary Date of admission: 06/02/21 20:28 Date of : 06/03/21 Disposition: 45 YO Male with Obesity, HTN, CAD, Nicotine Dependence presents to ED for evaluation. Patient reports "my chest hurts". Patient stated that he experienced sudden onset chest pain over the past 2 hours PORTFOLIO CONSULTANT. Patient stated that pain was 7/10, constant, substernal, crushing in nature, associated with sh ortness of breath, worsened with exertion, relieved with rest, relieved with nitro. Patient acknowledged diaphoresis. EMS was notified and upon arrival the patient was found to be in distress and subsequently transported to [facility] for further care and evaluation of the aforementioned symptoms. The patient was seen and evaluated in the emergency department. All lab and imaging studies reviewed. Patient underwent EKG and found to have clinical symptoms consistent with unstable angina, ST elevation ND, as well as clinical symptoms consistent with diastolic congestive heart failure.. Cardiology team consulted and the patient was taken urgently to Electric Car Operator. Patient was admitted with diagnosis of acute coronary syndrome, NSTEMI, acute diastolic heart failure, obesity hypoventilation syndrome, tobacco abuse and medical noncompliance. Patient was found to have diffuse mid and distal RCA disease and is s/p balloon angioplasty with drug eluting stent placement to the proximal RCA. Left coronary system shows severe disease including the proximal LAD, distal LAD with 100% occluded OM1 and proximal circumflex and distal circumflex lesions with bypassable marginal branches and LAD. Cardiology reported that considering the above angiography, patient would need revascularization surgically versus percutaneously. Patient with elevated troponin of 7.4. The patient was treated with heparin drip, Brilinta, aspirin and Lipitor, ARB and beta-frank. Unfortunately, patient deteriorated throughout the hospital stay and a CODE BLUE was called approximately 1800. Dr. Fitzpatrick reported to the bedside and the patient was found in asystolic arrest. The patient was treated" with ACLS protocol with return of perfusing cardiac rhythm. The patient had a second code and was found in asystolic arrest. The patient was treated" with ACLS protocol. On physical exam the patient was found to have absent pupillary responses. Patient pupils are fixed and dilated. Patient was found to have absent lung sounds. Patient was found to have absent heart sounds. Asystole observed on the cardiac cath lab technologist. Patient pronounced at 1851 hrs.
--- NOTE | 2021-06-05 14:10 | Electrocardiograph Report ---
[facility] Test Date: 2021-06-02 Test Time: 18:12:53 Pat Name: [facility]ONEL [facility] Department: Room: A259 1 Gender: M Classified Copy Control Clerk: CLARIBEL : 1975 Requested By: CECILIA ODONNELL Order Number: [id number] Reading MD: Jose R Anton Measurements Intervals [place] Rate: 108 P: 58 [place]: 204 QRS: 30 QRSD: 87 T: 109 QT: 329 QTc: 441 Interpretive Statements Sinus tachycardia Ventricular premature complex Acute inferior ST elevation myocardial infarction No previous ECG available for comparison Electronically Signed On 06-05-2021 14:10:36 EDT by Jose R Anton
--- NOTE | 2021-06-05 14:14 | Electrocardiograph Report ---
[facility] Test Date: 2021-06-03 Test Time: 07:19:01 Pat Name: LEONEL [facility] Department: Room: A259 1 Gender: M Ladle Builder: DIANA : 1975 Requested By: CECILIA ODONNELL Order Number: [id number] Reading MD: Jsoe R Anton Measurements Intervals [place] Rate: 94 P: 47 NE: 181 QRS: -16 QRSD: 77 T: 139 QT: 352 QTc: 441 Interpretive Statements Sinus rhythm Inferior infarct, old Abnrm T, consider ischemia, anterolateral lds Compared to ECG 06/02/2021 18:12:[address] elevation infarct ST changes are resolving Electronically Signed On 06-05-2021 14:14:31 EDT by Jose R Anton
--- NOTE | 2021-06-05 14:19 | Electrocardiograph Report ---
[facility] Test Date: 2021-06-03 Test Time: 14:17:55 Pat Name: [facility]ONEL [facility] Department: Room: A259 1 Gender: M Retail Wireless Sales Consultant: BILLY : 1975 Requested By: JOSIAS LAST Order Number: [id number] Reading MD: Jose R Anton Measurements Intervals [place] Rate: 93 P: 36 [place]: 182 QRS: -17 QRSD: 81 T: 142 QT: 351 QTc: 439 Interpretive Statements Sinus rhythm Probable LVH with secondary repol abnrm Inferior infarct, old T wave inversions, consider anterolateral ischemia Compared to ECG 06/03/2021 07:19:01 No significant change Electronically Signed On 06-05-2021 14:19:14 EDT by Jose R Anton
== END 2021-06-03 18:51 | DRG 246 ==
LOC: ED 18:22 → CATH 20:27 → CC1 20:28
PROVIDERS: ADMIT Internal Medicine; ATTEND Hospitalist
PROC: 027034Z Dilation of Coronary Artery, One Artery with Drug-eluting Intraluminal Device, Percutaneous Approach (ICD-10-PCS; principal; 2021-06-02)
PROC: 4A023N7 Measurement of Cardiac Sampling and Pressure, Left Heart, Percutaneous Approach (ICD-10-PCS; 2021-06-02)
PROC: B2151ZZ Fluoroscopy of Left Heart using Low Osmolar Contrast (ICD-10-PCS; 2021-06-02)
PROC: B2111ZZ Fluoroscopy of Multiple Coronary Arteries using Low Osmolar Contrast (ICD-10-PCS; 2021-06-02)
PROC: 0BH17EZ Insertion of Endotracheal Airway into Trachea, Via Natural or Artificial Opening (ICD-10-PCS; 2021-06-03)
PROC: 5A1935Z Respiratory Ventilation, Less than 24 Consecutive Hours (ICD-10-PCS; 2021-06-03)
PROC: 02HV33Z Insertion of Infusion Device into Superior Vena Cava, Percutaneous Approach (ICD-10-PCS; 2021-06-03)
PROC: B548ZZA Ultrasonography of Superior Vena Cava, Guidance (ICD-10-PCS; 2021-06-03)
DX: I21.19 ST elevation (STEMI) myocardial infarction involving other coronary artery of inferior wall (principal); I50.31 Acute diastolic (congestive) heart failure; E66.2 Morbid (severe) obesity with alveolar hypoventilation; F17.213 Nicotine dependence, cigarettes, with withdrawal; I25.10 Atherosclerotic heart disease of native coronary artery without angina pectoris; Z68.34 Body mass index [BMI] 34.0-34.9, adult; I11.0 Hypertensive heart disease with heart failure; Z91.14 Patient's other noncompliance with medication regimen; Z95.5 Presence of coronary angioplasty implant and graft; I46.9 Cardiac arrest, cause unspecified
CPT/HCPCS: 31500; 36415; 71045; 74176; 80048; 80061; 84484; 85025; 85027; 85520; 85610; 85730; 92941; 93005; 93306; 93458; 94002; 94003; G0378; A9270-GY; C1725; C1757; C1760; C1769; C1874; C1887; C1894; C9606; J0171; J0461; J1170; J1644; J2250; J2405; J3010; J7030; Q9967